=== PATIENT | male | born 1955 | race Caucasian/White ===

== ENCOUNTER 2016-03-22 12:21 | Emergency (ER) | payer MEDICARE, MEDICAID ==
[2013-03-01 08:35] VITALS: BMI 23.1
[~2016-03-22 12:21] MED LIST: BACTRIM DS TABL1 TAB; IMITREX50 MG PO; NORCO 10/325 TA1 TA1 PO; PROVENTIL HFA6.7 GM INH
[2016-03-22 12:59] LABS: APPEARANCE CLEAR (CLEAR); BACTERIA NONE SEEN /hpf (NONE SEEN); BILIRUBIN NEGATIVE (NEGATIVE); COLOR YELLOW (YELLOW); EPITHELIAL CELLS NSEEN /hpf (0-5); GLUCOSE NEGATIVE (NEGATIVE); KETONE NEGATIVE (NEGATIVE); LEUKOCYTE ESTERASE NEGATIVE (NEGATIVE); NITRITE NEGATIVE (NEGATIVE); PROTEIN TRACE mg/dL (NEGATIVE); UROBILINOGEN NORMAL (NORMAL); WHITE CELLS - URINE NSEEN /hpf (0-5)
[2016-03-22 13:13] LABS: BASOPHILS 0.3 % (0.0-2.0); EOSINOPHILS 1.8 % (0-7); HEMATOCRIT 37.7 % (42.0-54.0); HEMOGLOBIN 12.9 g/dL (13.5-17.5); IMMATURE GRANULOCYTES 0.3 % (0-5); LYMPHOCYTES 26.6 % (15-50); MCH 30.6 pg (26.0-34.0); MCHC 34.2 g/dL (31.0-37.0); MCV 89.5 fL (80.0-100.0); MEAN PLATELET VOLUME 9.6 fL (7.4-10.4); MONOCYTES 9.2 % (2-11); NEUTROPHILS 61.8 % (40-80); PLATELET COUNT 243 10x3/uL (130-400); RBC 4.21 10x6/uL (4.20-6.10); RDW 12.5 % (11.5-14.5); WBC 7.3 10x3/uL (4.8-10.8)
[2016-03-22 13:47] LABS: CALC OSMOLALITY 276 mosm/kg (275-300); CALCIUM 9.5 mg/dL (8.5-10.1); CARBON DIOXIDE 26.5 mmol/L (21.0-32.0); CHLORIDE - SERUM 104 mmol/L (98-107); CREATININE - SERUM 0.8 mg/dL (0.6-1.3); GLUCOSE 92 mg/dL (74-106); POTASSIUM - SERUM 4.2 mmol/L (3.5-5.1); SODIUM 138 mmol/L (136-145); UREA NITROGEN 14 mg/dL (7-18); eGFR NON AFRICAN AMERICAN > 90 mL/min (90-120)
== END 2016-03-22 15:30 | disposition home or self-care (01) ==
LOC: D.ER 12:21
PROVIDERS: Emergency Medicine
DX: R33.9 Retention of urine, unspecified (principal); J44.9 Chronic obstructive pulmonary disease, unspecified

== ENCOUNTER 2017-06-08 12:47 | Emergency (ER) | payer MEDICARE, MEDICAID ==
[2017-06-08 20:01] VITALS: BMI 23.1
== END 2017-06-08 20:48 | disposition home or self-care (01) ==
LOC: D.ER 12:47
DX: S92.001A Unspecified fracture of right calcaneus, initial encounter for closed fracture (principal); W11.XXXA Fall on and from ladder, initial encounter; Y93.89 Activity, other specified; Y92.019 Unspecified place in single-family (private) house as the place of occurrence of the external cause; S39.012A Strain of muscle, fascia and tendon of lower back, initial encounter; J44.9 Chronic obstructive pulmonary disease, unspecified

== ENCOUNTER 2018-06-29 12:59 | Inpatient (IN) | payer MEDICARE, MEDICAID ==
[~2018-06-29] VITALS: Ht 172.7 cm; Wt 61.8 kg
[2018-06-29] MEDS ORDERED: FLOMAX0.4 MG PO (14:17)
[2018-06-29 14:51] VITALS: BP 134/72; BMI 20.7
[2018-06-29 14:53] LABS: BASOPHILS 0.2 % (0-2); EOSINOPHILS 0.2 % (0-7); HEMATOCRIT 36.3 % (42.0-54.0); HEMOGLOBIN 12.4 g/dL (13.5-17.5); IMMATURE GRANULOCYTES 0.3 % (0-5); LYMPHOCYTES 17.7 % (15-50); MCH 29.3 pg (26.0-34.0); MCHC 34.2 g/dL (31.0-37.0); MCV 85.8 fL (80.0-100.0); MONOCYTES 7.4 % (2-11); NEUTROPHILS 74.2 % (40-80); RBC 4.23 10x6/uL (4.20-6.10); RDW 12.9 % (11.5-14.5); WBC 12.2 10x3/uL (4.8-10.8)
[2018-06-29 15:02] LABS: PLATELET COUNT 448 10x3/uL (130-400)
[2018-06-29 15:08] LABS: ALKALINE PHOSPHATASE 70 U/L (46-116); ALT (SGPT) 18 U/L (10-68); BILIRUBIN - TOTAL 0.36 mg/dL (0.2-1.3); C-REACTIVE PROTEIN 5.8 mg/dL (0.0-0.9); CALC OSMOLALITY 267 mosm/kg (275-300); CARBON DIOXIDE 28.4 mmol/L (21.0-32.0); CHLORIDE - SERUM 100 mmol/L (98-107); CREATININE - SERUM 0.8 mg/dL (0.6-1.3); POTASSIUM - SERUM 3.7 mmol/L (3.5-5.1); PROTEIN - SERUM 7.6 g/dL (6.4-8.2); SODIUM 135 mmol/L (136-145); UREA NITROGEN 12 mg/dL (7-18); eGFR NON AFRICAN AMERICAN > 90 mL/min (90-120)
[2018-06-29 15:23] LABS: GLUCOSE 60 mg/dL (74-106)
[2018-06-29] MEDS ORDERED: ALEVE220 MG PO (15:28)
[2018-06-29 16:32] LABS: ERYTHROCYTE SEDIMENTATION RATE 41 mm/hr (0-20)
[2018-06-29 16:46] VITALS: Ht 172.7 cm; Wt 61.8 kg
[2018-06-29 17:51] LABS: % SATURATION 8 % (15-55); IRON 20 ug/dl (35-150); TOTAL IRON BIND CAPACITY 227 ug/dl (260-445); UNSAT IRON BIND CAPACITY 207 ug/dl (150-375)
[2018-06-29 17:54] VITALS: BP 133/67
[2018-06-29 18:25] LABS: APPEARANCE CLEAR (CLEAR); BILIRUBIN NEGATIVE (NEGATIVE); COLOR YELLOW (YELLOW); GLUCOSE NEGATIVE (NEGATIVE); KETONE NEGATIVE (NEGATIVE); NITRITE NEGATIVE (NEGATIVE); PROTEIN NEGATIVE (NEGATIVE); UROBILINOGEN NORMAL (NORMAL)
[2018-06-29 19:22] LABS: ERYTHROCYTE SEDIMENTATION RATE 42 mm/hr (0-20)
--- NOTE | 2018-06-29 19:37 | NUR ---
PT ALERT AND ORIENTED WHEN ENTERING THE ROOM. PRESENTS WITH SWELLING IN HANDS BILATERALLY. LEFT FOREARM IV THAT IS PATENT. DENIES FURTHER NEEDS AT THIS TIME. CALL LIGHT IN REACH.
[2018-06-29 22:22] VITALS: BP 123/65
--- NOTE | 2018-06-30 04:25 | NUR ---
I have reviewed this patient and I concur with the Shift Assessment completed by the Licensed Practical Nurse today this shift.
[2018-06-30 05:16] VITALS: BP 105/71
--- NOTE | 2018-06-30 05:50 | NUR ---
PT AWAKE AND STATES THAT PAIN IS TOLERABLE. REQUESTS COFFEE. PROVIDED TO PT. DENIES FURTHER NEEDS.
[2018-06-30 07:31] LABS: CALC OSMOLALITY 275 mosm/kg (275-300); CARBON DIOXIDE 25.6 mmol/L (21.0-32.0); CHLORIDE - SERUM 102 mmol/L (98-107); CREATININE - SERUM 0.6 mg/dL (0.6-1.3); GLUCOSE 151 mg/dL (74-106); POTASSIUM - SERUM 4.2 mmol/L (3.5-5.1); SODIUM 136 mmol/L (136-145); UREA NITROGEN 14 mg/dL (7-18); eGFR NON AFRICAN AMERICAN > 90 mL/min (90-120)
--- NOTE | 2018-06-30 07:32 | NUR ---
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 REPORTS PAIN AND EDEMA TO BILAT HANDS AND ANKLES SINCE FLU SHOT IN MARCH. REPORTS PAIN AND STRENGTH IMPROVED SOME SINCE STEROID INJECTION LAST PM. PATIENT IS ALERT AND ORIENTED AND UP WITHOUT ASSISTANCE NEEDED. CL IN REACH.
[2018-06-30 07:36] LABS: BASOPHILS 0 % (0-2); EOSINOPHILS 0 % (0-7); HEMATOCRIT 34.5 % (42.0-54.0); HEMOGLOBIN 11.6 g/dL (13.5-17.5); IMMATURE GRANULOCYTES 0.2 % (0-5); LYMPHOCYTES 14.5 % (15-50); MCH 28.9 pg (26.0-34.0); MCHC 33.6 g/dL (31.0-37.0); MEAN PLATELET VOLUME 9.9 fL (7.4-10.4); MONOCYTES 1.8 % (2-11); NEUTROPHILS 83.5 % (40-80); PLATELET COUNT 416 10x3/uL (130-400); RBC 4.01 10x6/uL (4.20-6.10)
[2018-06-30 07:38] LABS: WBC 5.1 10x3/uL (4.8-10.8)
[2018-06-30 09:05] VITALS: BP 116/75
--- NOTE | 2018-06-30 12:25 | NUR ---
IV REMOVED FROM LEFT FOREARM WITH NO REDNESS OR EDEMA AT SITE. DISCHARGE INSTRUCTIONS GIVEN TO PATIENT WITH UNDERSTANDING VOICED.
[2018-06-30 12:47] VITALS: BP 132/71
--- NOTE | 2018-06-30 14:05 | NUR ---
PATIENT TAKEN BY WHEELCHAIR TO PRIVATE CAR
[2018-06-30] MEDS ORDERED: PROTONIX40 MG PO (15:36)
== END 2018-06-30 14:06 | disposition home or self-care (01) | DRG 554 ==
LOC: D.MS 12:59
PROVIDERS: Internal Medicine Nephrology; ADMIT Orthopaedic Surgery; ATTEND Orthopaedic Surgery
DX: M13.89 Other specified arthritis, multiple sites (principal); R63.4 Abnormal weight loss; D64.9 Anemia, unspecified; J44.9 Chronic obstructive pulmonary disease, unspecified; Z68.20 Body mass index [BMI] 20.0-20.9, adult